=== PATIENT | male | born 1990 | race American Indian/Alaskan Native ===

== ENCOUNTER 2018-06-22 17:24 | Emergency (ER) | payer MEDICAID ==
[2018-06-22 17:41] VITALS: BP 136/73
--- NOTE | 2018-06-22 17:50 | Emergency Department Report ---
ED Rash HPI - HPI Chief Complaint: Skin/Abscess/Foreign Body Stated Complaint: BED BUGS ON BACK Time Seen by Provider: 06/22/18 17:34 Duration: 2 Days Location: Back Suspected Cause: Insect (bedbugs) Rash Symptoms: Yes Itching (redness and itching to back), Yes Choking Sensation, No Facial Swelling, No Tongue/Oral Swelling, No Breathing Difficulties, No Wheezing/Dyspnea, No Peeling, No Blistering, No Fever, No Lightheaded, No Malaise, No Myalgias Severity: moderate (itching and no pain) Other History: This is a 28-year-old male here with family member and he reports that he had bedbug in his room and he has been itching and with red spots to his back 2 days. He said the redness is increased and became is of a chin. . Denies any respiratory problems. Denies any fever or chills. Family reported that matches was discarded due to bedbug infestation. ED Review of Systems ROS: Stated complaint: BED BUGS ON BACK Other details as noted in HPI Constitutional: denies: chills, fever (bedbug bite needed U Andrew by U did already stand K despite urine and follow so this) Respiratory: denies: cough, shortness of breath, wheezing Cardiovascular: denies: chest pain, palpitations Gastrointestinal: denies: nausea, vomiting Musculoskeletal: denies: back pain, arthralgia, myalgia Skin: rash, pruritus Neurological: denies: headache ED Past Medical Hx - Past Medical History Previous Medical History?: No Hx Psychiatric Treatment: Yes (Denies inpatient treatment) - Surgical History Past Surgical History?: No - Family History Family history: hypertension - Social History Smoking Status: Never Smoker Substance Use Type: None - Medications Home Medications: Home Medications Medication Instructions Recorded Confirmed Last Taken Type Lurasidone HCl [Latuda] 120 mg PO QDAY 10/20/13 10/20/13 Unknown History traZODone [Desyrel] 100 mg PO TID 10/20/13 10/20/13 Unknown History Triamcinolone 0.1% [Kenalog 0.1% 1 applic TP TID 7 Days #1 tube 06/22/18 Unknown Rx CREAM] cephALEXin [Keflex] 500 mg PO Q8HR 5 Days #15 cap 06/22/18 Unknown Rx hydrOXYzine HCL [Atarax] 25 mg PO Q6HR PRN #12 tablet 06/22/18 Unknown Rx Rash Exam - Exam General: Vital signs noted. No distress. Alert and acting appropriately. This is a 20-year-old male well-nourished well-developed in no acute distress. HEENT: No Periorbital Edema, No Conjuctival Injection, No Chemosis, No Perioral Edema, No Tongue Edema, No Uvular Edema, No Compromised Airway, No Drooling Lungs: Yes Good Air Exchange, No Wheezes, No Ronchi, No Stridor, No Cough, No Labored Respirations, No Retractions, No Use of Accessory Muscles, No Other Abnormal Lung Sounds Heart: Yes Regular, No Murmur Front/Back of Body, Lg (Color): 1 - Multiple areas to lumbar and thoracic paraspinal area with polyps appears to be mild cellulitis. Patient has been itching area. Nontender to palpate. Scattered sparsely and back. Appears to be insect bite with infection. Skin: Yes Erythema (upper and lower back), Yes Other (erythema or rash noted to upper and lower back some of her smaller, ears erythema with raised areas. Nontender to palpate. No induration or fluctuance. No bedbug noted.), No Urticarial Rash, No Maculopapular Rash, No Excoriations, No Weeping, No Tenderne ss Other: Positive: Abdomen Normal (normal exam), Neurologic Normal (alert and oriented 3 in no acute distress), Musculoskeletal Normal (normal exam) ED Course Vital Signs 06/22/18 17:38 Temperature 96.8 F L Pulse Rate 88 Respiratory 18 Rate Blood Pressure 136/73 O2 Sat by Pulse 100 Oximetry - Reevaluation(s) Reevaluation #1: 06/22/18 18:09 Patient's treated with Keflex for superimposed bacterial infection on bedbug bite. He was given 500 mg by mouth, Benadryl 50 mg by mouth and Deltasone 50 mg by mouth to help with itching. ED Medical Decision Making - Medical Decision Making This is a 28-year-old male here reports that this he was bitten by bedbug. He reports that bedbug this was seen on his mattress she is throughout and they moved. I educated him on bedbug on how to get rid of bed bugs and is closed and also furniture. Patient was understandably was treated emergency room with Keflex for mild cellulitis, prednisone and Benadryl for itching and he was given Boostrix 0.5 mL to update tetanus vaccine. Patient is in no acute distress, vital signs stable and he is pain-free. He feels better and discharged home in stable condition with his family member. Prescription for triamcinolone cream, Atarax and Keflex. Follow up with primary care physician in 3-5 days or if symptoms worsen to follow up with [facility] consultant. Critical care attestation.: If time is entered above; I have spent that time in minutes in the direct care of this critically ill patient, excluding procedure time. ED Disposition Clinical Impression: Cellulitis of skin of back, Pruritus Insect bite Qualifiers: Encounter type: initial encounter Site of insect bite: unspecified site Qualified Code(s): W57.XXXA - Bitten or stung by nonvenomous insect and other nonvenomous arthropods, initial encounter Disposition: DC-01 TO HOME OR SELFCARE Is pt being admited?: No Does the pt Need Aspirin: No Condition: Stable Instructions: Itchy Skin (ED), Cellulitis (ED), Insect Bite or Sting (ED) Additional Instructions: Please follow discharge instructions on bedbug bites and also get a rate of bedbug. Follow-up the primary care physician in 3-5 days but if area of redness is not better with 3 days or if getting worse he can return to emergency room or follow-up with [facility]. See referral and discharge instruction paperwork Take medication as prescribed. Keep affected area clean and dry Referrals: NICO MARIA MD [Staff Physician] - 3-5 Days [facility] [Outside] - 3-5 Days Forms: Accompanied Note, Work/School Release Form(ED)
[2018-06-22] MEDS ORDERED: KEFLEX PO ONE (18:00)
[2018-06-22] MEDS ORDERED: BENADRYL PO ONE (18:00)
[2018-06-22] MEDS ORDERED: DELTASONE PO ONE (18:00)
[2018-06-22] MEDS ORDERED: BOOSTRIX IM ONE (18:03)
== END 2018-06-22 18:43 | disposition home or self-care (01) ==
LOC: ED 17:24
DX: S20.469A Insect bite (nonvenomous) of unspecified back wall of thorax, initial encounter (principal); L03.312 Cellulitis of back [any part except buttock and flank]; W57.XXXA Bitten or stung by nonvenomous insect and other nonvenomous arthropods, initial encounter; Y93.89 Activity, other specified; Y99.8 Other external cause status; Y92.89 Other specified places as the place of occurrence of the external cause
CPT/HCPCS: 90471; 90715; 99282; J7512